=== PATIENT | female | born 1990 | race Hispanic/Latino ===

== ENCOUNTER 2021-09-25 08:27 | Emergency (ER) | payer OTHER ==
[~2021-09-25] VITALS: Ht 162.6 cm; Wt 88.5 kg
[2021-09-25 09:00] LABS: BASOPHILS % (AUTO) 0.6 % (0.0-5.0); EOSINOPHILS % (AUTO) 3.2 % (0.0-8.0); LYMPHOCYTES % (AUTO) 22.4 % (21.0-51.0); MEAN CORPUSCULAR HEMOGLOBIN 28.9 pg (27.0-33.0); MEAN CORPUSCULAR HGB CONC 33.8 g/dL (32.0-36.0); MEAN CORPUSCULAR VOLUME 85.4 fL (79-99); MONOCYTES % (AUTO) 7.5 % (3.0-13.0); PLATELET COUNT (AUTO) 365 K/uL (130-400); RED BLOOD CELL COUNT(AUTO) 4.92 MIL/uL (4.00-5.50); RED CELL DISTRIBUTION WIDTH 13.6 % (11.0-15.5); WHITE BLOOD COUNT (AUTO) 6.9 K/uL (4.8-10.8)
[2021-09-25] MEDS ORDERED: ENALAPRIL MALEATE 5 MG TAB PO SCH (09:00)
[2021-09-25] MEDS ORDERED: ACETAMINOPHEN 500 MG TABLET PO SCH (09:00)
[2021-09-25] MEDS ORDERED: 0.9%NACL 1000ML 1,000 ML IV SCH (09:00)
[2021-09-25 09:03] LABS: CREATININE 0.9 mg/dL (0.5-1.5); POTASSIUM 3.5 mmol/L (3.5-5.1)
[2021-09-25 09:27] LABS: APPEARANCE,URINE Cloudy (CLEAR); BILIRUBIN,URINE Negative (NEGATIVE); COLOR,URINE Dark Yellow (YELLOW); GLUCOSE, URINE (UA) Negative (NEGATIVE); KETONES,URINE Trace mg/dL (NEGATIVE); LEUKOCYTE ESTERASE ,URINE Negative (NEGATIVE); NITRATE,URINE Negative (NEGATIVE); OCCULT BLOOD,URINE Negative (NEGATIVE); PROTEIN,URINE Trace mg/dL (NEGATIVE); UROBILINOGEN,URINE 0.2 mg/dL (0.2-1.0)
[2021-09-25 09:32] LABS: HCG,QUAL RESULT NEGATIVE (NEGATIVE)
[2021-09-25 09:37] LABS: BACTERIA,URINE Few /HPF (None Seen); CALCIUM OXALATE CRYSTALS,UR Moderate /LPF (None Seen); RBC,URINE 0-1 /HPF (0-1); SQUAMOUS EPITHELIAL CELL,UR 0-2 /HPF (0-2); WBC,URINE 0-1 /HPF (0-1)
[2021-09-25 10:48] VITALS: BP 125/85
== END 2021-09-25 10:49 ==
LOC: EDH 08:27
DX: R55 Syncope and collapse (principal); I10 Essential (primary) hypertension
CPT/HCPCS: 36415; 70450; 80048; 81001; 81025; 84484; 85025; 93005; 96360; 99285; J7030